=== PATIENT | male | born 1990 | race Two or more races ===

== ENCOUNTER 2018-04-28 19:04 | Emergency (ER) | payer MEDICAID ==
[~2018-04-28] VITALS: Ht 170.2 cm; Wt 74.8 kg
--- NOTE | 2018-04-28 19:42 | NUR ---
PT SELF PRESENTS TO ER BED 04 C/O LOWER BACK PAIN AND SPASMS FROM AN INJURY LONG TIME AGO. DENIES ANY RECENT TRAUMA. WAS AT URGENT CARE AND WAS GIVEN CORTICOSTEROID SHOT BUT THINKS IT GOT WORST. STABLE VITALS. WORST W/ MOVEMENT. AWAITING MD FLOOD.
--- NOTE | 2018-04-28 20:08 | NUR ---
KALEB JARA AT BEDSIDE FOR EVAL.
[2018-04-28] MEDS ORDERED: MORPHINE SULFATE INJ 4 MG/ML DISP.SYRIN ONE (20:19)
[2018-04-28] MEDS ORDERED: ONDANSETRON 4 MG TAB.RAPDIS ONE (20:19)
[2018-04-28] MEDS ORDERED: DIAZEPAM 5 MG TABLET ONE (20:19)
[2018-04-28] MEDS ORDERED: KETOROLAC TROMETHAMINE INJ 60 MG/2 ML VIAL IM ONE (20:30)
[2018-04-28] MEDS ORDERED: KETOROLAC TROMETHAMINE INJ 30 MG/ML VIAL ONE (20:30)
[2018-04-28] MEDS ORDERED: MORPHINE SULFATE INJ 4 MG/ML DISP.SYRIN IM ONE (20:30)
[2018-04-28] MEDS ORDERED: ONDANSETRON 4 MG TAB.RAPDIS SL ONE (20:30)
[2018-04-28] MEDS ORDERED: DIAZEPAM 5 MG TABLET PO ONE (20:30)
--- NOTE | 2018-04-28 21:20 | NUR ---
PT STILL C/O 10/10 PAIN AFTER MEDICATION. KALEB JARA MADE AWARE.
[2018-04-28] MEDS ORDERED: HYDROCODONE/APAP 10/325MG 1 EA TABLET ONE (21:37)
--- NOTE | 2018-04-28 21:41 | NUR ---
MEDICATED ORDERED. SEE MAR.
[2018-04-28] MEDS ORDERED: HYDROCODONE/APAP 10/325MG 1 EA TABLET PO ONE (22:00)
[2018-04-28 22:13] VITALS: BP 134/66
--- NOTE | 2018-04-28 22:13 | NUR ---
Patient discharged to home in stable condition. Written and verbal after care instructions given. Patient verbalizes understanding of instruction.
== END 2018-04-28 22:14 | disposition home or self-care (01) ==
LOC: ER 19:08
DX: M51.37 Other intervertebral disc degeneration, lumbosacral region (principal); G89.29 Other chronic pain; M54.5 Low back pain
CPT/HCPCS: 96372 ×2; 99284; A4606; J1885; J2270; Q0162; Z7610

== ENCOUNTER 2018-10-12 17:41 | Emergency (ER) | payer MEDICAID ==
[~2018-10-12] VITALS: Ht 170.2 cm; Wt 76.2 kg
--- NOTE | 2018-10-12 18:14 | NUR ---
PT BIBSELF FROM HOME C/O BACK PAIN, NO TRAUMA, PT AAOX4, RESPIRATIONS EVEN AND UNLABORED, NO SOB, NAD NOTED, VSS, AWAITING ER PROVIDER EVAL
[2018-10-12] MEDS ORDERED: KETOROLAC TROMETHAMINE INJ 60 MG/2 ML VIAL IM ONE (18:35)
[2018-10-12] MEDS ORDERED: DIAZEPAM 5 MG TABLET ONE (18:35)
[2018-10-12] MEDS ORDERED: DEXAMETHASONE SOD PHOSPHATE 4 MG/ML VIAL ONE (18:35)
[2018-10-12] MEDS: DEXAMETHASONE SOD PHOSPHATE 4 MG/ML VIAL IM ONE (18:42)
[2018-10-12] MEDS: DIAZEPAM 5 MG TABLET PO ONE (18:43)
[2018-10-12] MEDS: KETOROLAC TROMETHAMINE INJ 60 MG/2 ML VIAL IM ONE (18:43)
--- NOTE | 2018-10-12 18:45 | NUR ---
URINE SPECIMEN CUP GIVEN TO PT, UNABLE TO GIVE SAMPLE AT THIS TIME
--- NOTE | 2018-10-12 18:58 | NUR ---
URINE COLLECTED AND SENT TO LAB
[2018-10-12 19:03] LABS: APPEARANCE,URINE Clear (CLEAR); BILIRUBIN,URINE SMALL (NEGATIVE); BLOOD, URINE Moderate Ery/uL (NEGATIVE); COLOR,URINE Yellow (YELLOW); KETONES,URINE Trace (NEGATIVE); LEUKOCYTE ESTERASE ,URINE Negative (NEGATIVE); NITRITE, URINE Negative (NEGATIVE); PH,URINE 6.5 (5.0-8.0); PROTEIN,URINE Trace mg/dl (NEGATIVE); UGLUCOSE 100 MG/DL mg/dL (NEGATIVE)
[2018-10-12 19:17] LABS: BACTERIA,URINE Rare /HPF (None Seen); SQUAMOUS EPITHELIAL CELL,UR Few /HPF (None Seen); WBC,URINE 0-2 /HPF (0-3)
[2018-10-12 19:49] VITALS: BP 130/77
--- NOTE | 2018-10-12 19:51 | NUR ---
Patient discharged to home in stable condition. Written and verbal after care instructions given. Patient verbalizes understanding of instruction. Ambulatory with a steady gait
== END 2018-10-12 19:54 | disposition home or self-care (01) ==
LOC: ER 17:43
DX: M54.5 Low back pain (principal)
CPT/HCPCS: 81000-TC; J1100; J1885

== ENCOUNTER 2018-11-01 11:21 | Emergency (ER) | payer MEDICAID ==
[~2018-11-01] VITALS: Ht 170.2 cm; Wt 75.3 kg
[2018-11-01 11:34] VITALS: BP 132/82
[2018-11-01] MEDS ORDERED: diphenhydrAMINE HCL 50 MG/ML VIAL IV ONE (12:00)
[2018-11-01] MEDS ORDERED: METOCLOPRAMIDE HCL 10 MG/2 ML VIAL IV ONE (12:00)
[2018-11-01] MEDS ORDERED: KETOROLAC TROMETHAMINE INJ 30 MG/ML VIAL IV ONE (12:00)
[2018-11-01] MEDS ORDERED: IV NS 0.9% 250 ML BAG IV ONE (12:00)
--- NOTE | 2018-11-01 12:00 | NUR ---
ADDENDUM: Intravenous End Time Documentation: Normal saline 250 cc : start time: 1200 pm ; end time:1252 pm : IV site: LAC #20 Port #1
[2018-11-01] MEDS ORDERED: diphenhydrAMINE HCL 50 MG/ML VIAL ONE (12:10)
[2018-11-01] MEDS ORDERED: KETOROLAC TROMETHAMINE INJ 30 MG/ML VIAL ONE (12:11)
[2018-11-01] MEDS ORDERED: METOCLOPRAMIDE HCL 10 MG/2 ML VIAL ONE ×2 (12:11→12:18)
--- NOTE | 2018-11-01 12:36 | NUR ---
pt given iv fluids ns 9% L AC 20 g
== END 2018-11-01 13:20 | disposition home or self-care (01) ==
LOC: ER 11:24
DX: R51 Headache (principal); R11.2 Nausea with vomiting, unspecified; M54.2 Cervicalgia
CPT/HCPCS: 96361; 96374; 96375; 99283; A4606; J1200; J1885; J2765 ×2; J7050; Z7610; J7030

== ENCOUNTER 2018-11-15 12:47 | Emergency (ER) | payer MEDICAID, OTHER ==
[~2018-11-15] VITALS: Ht 170.2 cm; Wt 79.4 kg
[2018-11-15] MEDS ORDERED: LIDOCAINE 2% JEL UROJET 10 ML MM ONE (13:04)
--- NOTE | 2018-11-15 13:07 | NUR ---
BIB [facility], C/O PAINFUL URINATION, NO BM x 3 DAYS, 07/20 PS. PAIN IS BURNING AND FEELS URGE BUT CANNOT URINATE. PT IS AOX4, AMB, VSS, RR EVEN AND UNLABORED. PLACED ON MONITOR. PT IS SCREAMING IN PAIN. IN CUSTODY. READY FOR EVAL.
[2018-11-15] MEDS ORDERED: KETOROLAC TROMETHAMINE INJ 30 MG/ML VIAL ONE (13:21)
[2018-11-15] MEDS ORDERED: MORPHINE SULFATE INJ 4 MG/ML DISP.SYRIN ONE (13:21)
[2018-11-15] MEDS ORDERED: ONDANSETRON HCL/PF 4 MG/2 ML VIAL ONE (13:21)
[2018-11-15 13:26] LABS: BASOPHILS % (AUTO) 0.4 % (0.0-2.0); EOSINOPHILS % (AUTO) 0.7 % (0.0-6.0); HEMATOCRIT 43 % (39-51); HEMOGLOBIN 14.3 g/dL (13.5-17.5); LYMPHOCYTES # (AUTO) 0.8 /CMM (0.8-4.8); LYMPHOCYTES % (AUTO) 6.2 % (20.0-44.0); MEAN CORPUSCULAR HGB CONC 34 g/dl (31.0-36.0); MEAN CORPUSCULAR VOLUME 87 fL (80-96); MONOCYTES # (AUTO) 0.5 /CMM (0.1-1.30); MONOCYTES % (AUTO) 3.7 % (2.0-12.0); NEUTROPHILS # (AUTO) 11.1 /CMM (1.8-8.9); PLATELET COUNT (AUTO) 252 /CMM (150-450); WHITE BLOOD COUNT (AUTO) 12.4 K/uL (4.3-11.0)
[2018-11-15 13:27] LABS: APPEARANCE,URINE Clear (CLEAR); BILIRUBIN,URINE Negative (NEGATIVE); BLOOD, URINE Trace-intact Ery/uL (NEGATIVE); COLOR,URINE Yellow (YELLOW); KETONES,URINE Negative (NEGATIVE); LEUKOCYTE ESTERASE ,URINE Negative (NEGATIVE); NITRITE, URINE Negative (NEGATIVE); PH,URINE 8.5 (5.0-8.0); PROTEIN,URINE Negative (NEGATIVE); UGLUCOSE Negative (NEGATIVE); UROBILINOGEN,URINE 0.2 EU/dL (0.2)
[2018-11-15] MEDS ORDERED: MORPHINE SULFATE INJ 2 MG/ML DISP.SYRIN IV ONE (13:30)
[2018-11-15] MEDS ORDERED: ONDANSETRON HCL/PF 4 MG/2 ML VIAL IVP ONE (13:30)
[2018-11-15] MEDS ORDERED: KETOROLAC TROMETHAMINE INJ 30 MG/ML VIAL IV ONE (13:30)
[2018-11-15 13:33] LABS: BACTERIA,URINE Few /HPF (None Seen); CALCIUM, SERUM 9.4 mg/dL (8.5-10.1); CREATININE 0.9 mg/dL (0.6-1.3); POTASSIUM 3.7 mmol/L (3.5-5.1); SQUAMOUS EPITHELIAL CELL,UR Rare /HPF (None Seen); WBC,URINE 0-2 /HPF (0-3)
--- NOTE | 2018-11-15 13:40 | NUR ---
PT TAKEN TO CT VIA [facility]
--- NOTE | 2018-11-15 13:55 | NUR ---
PT RETURNED FROM CT, STILL MOANING FROM PAIN. ATTEMPT TO MAKE COMFORTABLE WITH BREATHING EXERCISE AND DIM LIGHTS
[2018-11-15] MEDS ORDERED: LORAZEPAM INJ 2 MG/ML VIAL ONE (14:13)
[2018-11-15] MEDS ORDERED: PHENAZOPYRIDINE HCL 200 MG TABLET ONE (14:13)
[2018-11-15] MEDS ORDERED: LIDOCAINE /MPF 1% VIAL 5 ML VIAL ONE (14:27)
[2018-11-15] MEDS ORDERED: CEFTRIAXONE 1 G VIAL ONE (14:27)
[2018-11-15] MEDS ORDERED: AZITHROMYCIN 250 MG TABLET ONE (14:28)
[2018-11-15] MEDS ORDERED: CEFTRIAXONE 1 G VIAL IM ONE (14:30)
[2018-11-15] MEDS ORDERED: LORAZEPAM INJ 2 MG/ML VIAL IV ONE (14:30)
[2018-11-15] MEDS ORDERED: PHENAZOPYRIDINE HCL 200 MG TABLET PO ONE (14:30)
[2018-11-15] MEDS ORDERED: AZITHROMYCIN 250 MG TABLET PO ONE (14:30)
--- NOTE | 2018-11-15 15:04 | NUR ---
MEDEIROS CATHETER SWITCHED TO LEG BAG PER DR JENKINS. IV removed. Catheter intact and site benign. Pressure and 4x4 applied to site. No bleeding noted. Patient discharged to [facility] in stable condition. Written and verbal after care instructions given. Patient verbalizes understanding of instruction.
[2018-11-15 15:07] VITALS: BP 145/83
== END 2018-11-15 15:08 ==
LOC: ER 12:55
DX: R33.9 Retention of urine, unspecified (principal); K59.00 Constipation, unspecified
CPT/HCPCS: 36415; 51702; 74176; 80048; 81001; 85025; 87491; 87591; 96372; 96374; 96375; 99284; A4606; J0696; J1885; J2060; J2270; J2405; J3490 ×2; 81000-TC

== ENCOUNTER 2023-05-12 22:19 | Emergency (ER) | payer OTHER ==
[~2023-05-12] VITALS: Ht 170.2 cm; Wt 72.6 kg
[2023-05-12] MEDS ORDERED: ONDANSETRON HCL/PF 4 MG/2 ML VIAL ONE (22:37)
[2023-05-12] MEDS ORDERED: ONDANSETRON HCL/PF 4 MG/2 ML VIAL IVP ONE (23:00)
[2023-05-12 23:17] LABS: BASOPHILS # (AUTO) 0.1 K/uL (0.0-0.2); BASOPHILS % (AUTO) 0.6 % (0.0-2.0); EOSINOPHILS # (AUTO) 0.2 K/uL (0.0-0.7); EOSINOPHILS % (AUTO) 2.3 % (0.0-6.0); HEMATOCRIT 43 % (39-51); HEMOGLOBIN 14.1 g/dL (13.5-17.5); LYMPHOCYTES # (AUTO) 3.6 K/uL (0.8-4.8); LYMPHOCYTES % (AUTO) 38.1 % (20.0-44.0); MEAN CORPUSCULAR HEMOGLOBIN 27 PG (26.0-33.0); MEAN CORPUSCULAR HGB CONC 33 g/dl (31.0-36.0); MEAN CORPUSCULAR VOLUME 83 fL (80-96); MONOCYTES # (AUTO) 0.7 K/uL (0.1-1.30); NEUTROPHILS # (AUTO) 4.8 K/uL (1.8-8.9); PLATELET COUNT (AUTO) 319 K/uL (150-450); RED BLOOD CELL COUNT(AUTO) 5.13 MIL/uL (4.5-6.0); RED CELL DISTRIBUTION WIDTH 16.2 % (11.5-15.0); WHITE BLOOD COUNT (AUTO) 9.4 K/uL (4.3-11.0)
[2023-05-12 23:33] LABS: ALANINE AMINOTRANSFERASE 31 U/L (12-78); ALCOHOL, BLOOD < 3 mg/dL (0-10); ALKALINE PHOSPHATASE 104 U/L (46-116); ASPARTATE AMINOTRANSFERASE 25 U/L (15-37); BILIRUBIN,DIRECT 0.1 mg/dL (0.0-0.2); BILIRUBIN,TOTAL 0.3 mg/dL (0.2-1.0); CALCIUM, SERUM 9.6 mg/dL (8.5-10.1); CARBON DIOXIDE 28 mmol/L (21-32); CHLORIDE 105 mmol/L (98-107); CREATININE 0.9 mg/dL (0.6-1.3); GLUCOSE 142 mg/dL (74-106); POTASSIUM 3.3 mmol/L (3.5-5.1); SODIUM SERUM 140 mmol/L (136-145); TOTAL PROTEIN, SERUM 7.6 g/dL (6.4-8.2); UREA NITROGEN, BLOOD 6 mg/dL (7-18)
[2023-05-12 23:39] LABS: ACETAMINOPHEN <10 ug/ml (10-30); SALICYLATE 2.4 mg/dL (2.8-20.0)
[2023-05-13 05:05] VITALS: BP 156/81; TEMP 98; O2SAT 97
== END 2023-05-13 05:06 | disposition home or self-care (01) ==
LOC: ER 22:31
DX: R11.0 Nausea (principal); T40.411A Poisoning by fentanyl or fentanyl analogs, accidental (unintentional), initial encounter; Z59.01 Sheltered homelessness; Y92.89 Other specified places as the place of occurrence of the external cause
CPT/HCPCS: 99285; 96374; 93005; 85025; 80048; 80076; 36415; 80143; 80320; 71045; J2405; G0480